=== PATIENT | male | born 1990 | race African-American/Black ===

== ENCOUNTER 2019-11-11 14:18 | Emergency (ER) | payer OTHER ==
[~2019-11-11] VITALS: Ht 170.2 cm; Wt 74.8 kg
[2019-11-11 14:49] VITALS: BP 154/91; TEMP 98.4
== END 2019-11-11 16:07 | disposition home or self-care (01) ==
LOC: ED 14:18
DX: S16.1XXA Strain of muscle, fascia and tendon at neck level, initial encounter (principal); S60.221A Contusion of right hand, initial encounter
CPT/HCPCS: 99283